=== PATIENT | male | born 1960 | race Caucasian/White ===

== ENCOUNTER 2016-11-08 07:27 | Day surgery (SDC) | payer MEDICARE, MEDICAID ==
[~2016-11-08] VITALS: Ht 185.4 cm; Wt 88.0 kg
[~2016-11-08 07:27] MED LIST: 0.9% Sodium Chloride 1,000 ML IV SCH; MULT-1018 PO; Sodium Chloride LOK Flush 10 mL Syringe IV PRN; fentaNYL-PF 50 mCg/mL 2 mL Inj IVPUSH PRN
[2016-11-08 07:49] VITALS: BP 137/85; PULSE 81; RESP 18; O2SAT 97
[2016-11-08 09:22] VITALS: BP 111/67; PULSE 71; RESP 14; O2SAT 91
[2016-11-08 09:32] VITALS: BP 98/64; PULSE 62; RESP 16; O2SAT 94
[2016-11-08 09:41] VITALS: BP 113/81; PULSE 67; RESP 16; O2SAT 93
--- NOTE | 2016-11-08 11:39 | ENDO ---
[address] [address] ENDOSCOPY PROCEDURE PATIENT: MIGUEL HODGES : 1960 MR#: [id number] ADMIT: 11/08/2016 JOB ID: [id number] DATE: 11/08/2016 PROCEDURE: Colonoscopy. INDICATIONS: Screening. ASA CLASSIFICATION: I MALLAMPATI SCORE: 2 MEDICATIONS: Versed at 5 mg, fentanyl 100 mcg. INSTRUMENT USED: PCF-H180AL. PREP QUALITY: Fair. PROCEDURE DETAILS: After informed consent was obtained, the patient was brought into the GI suite where he was placed on oxygen via nasal cannula and monitored with continuous pulse oximeter, telemetry, and blood pressure monitoring. A time-out was performed. Then, he was placed in a left lateral decubitus position and medications were administered for sedation. Digital rectal exam with palpation of the prostate was performed, which revealed one small external hemorrhoid, otherwise unremarkable. The colonoscope was then inserted into the rectum and advanced under direct visualization to the cecum, which was identified by the presence of the ileocecal valve and appendiceal orifice. Once the cecum was reached, the colonoscope was withdrawn back in the rectum, as the mucosa and lumen were examined. In the rectum, retroflexion was performed. Following retroflexion, remaining air in the rectum suctioned and procedure was completed. FINDINGS: Normal exam from rectum to cecum. IMPRESSION: External hemorrhoid. Otherwise normal exam. RECOMMENDATIONS: 1. Repeat colonoscopy in 10 years, sooner if symptoms should dictate. 2. Fiber-rich diet. COMPLICATIONS: None. ESTIMATED BLOOD LOSS: Zero.
== END 2016-11-08 23:59 | disposition home or self-care (01) ==
LOC: END 07:27
PROVIDERS: ATTEND Internal Medicine Gastroenterology
DX: Z12.11 Encounter for screening for malignant neoplasm of colon (principal); K64.4 Residual hemorrhoidal skin tags
CPT/HCPCS: 99153; G0121; G0500; J2250; J3010; J7030